=== PATIENT | female | born 1955 | race Two or more races ===

== ENCOUNTER → 2017-03-22 | Outpatient (CLI) | payer OTHER ==
--- NOTE | 2017-03-22 11:06 | RADRPT ---
PROCEDURE: XR right knee. CLINICAL INDICATION: Knee pain TECHNIQUE: AP weightbearing, PA weightbearing, lateral weightbearing and sunrise views are availab le for review. 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 The osseous structures are normal in mineralization, architecture and alignment. No fractures are i dentified. No osseous lesions are identified. There is mild osteoarthrosis involving the medial ti bial femoral compartment (joint space narrowing) and the patellofemoral compartment (minimal osteoph ytosis).. The soft tissues are unremarkable. 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 RPTAT: [facility] .Mac Hernandez MD, MD Date Time Electronically viewed and signed by .Mac Hernandez MD, on 03/22/2017 11:06 .B/
== END | disposition home or self-care (01) ==
LOC: HKI 09:19
PROVIDERS: ATTEND Orthopaedic Surgery
DX: M25.561 Pain in right knee (principal); Z79.82 Long term (current) use of aspirin; Z88.1 Allergy status to other antibiotic agents
CPT/HCPCS: G0463

== ENCOUNTER → 2017-04-28 | Outpatient (CLI) | payer OTHER | END | disposition home or self-care (01) | LOC: HKI 13:25 | PROVIDERS: ATTEND Orthopaedic Surgery | DX: M25.561 Pain in right knee (principal) | CPT/HCPCS: G0463 ==

== ENCOUNTER → 2017-06-20 | Outpatient (CLI) | payer OTHER ==
--- NOTE | 2017-06-21 05:33 | HKNOTE ---
DATE OF SERVICE: 06/20/2017 MAIN COMPLAINT: Right knee pain. HISTORY OF PRESENT ILLNESS: This is a 62-year-old female complaining of right knee pain. The pain is progressively getting worse. She has difficulty ambulating. She has difficulty navigating stairs. The pain is severe and both on the inside and outside of the knee. She is complaining of pain with locking and catching of the knee. She has attempted previous activity modification, pain medications, and physical therapy without any pain relief. She is taking [id number] anti- inflammatories. She denies any hip or back pain. PAST MEDICAL HISTORY: Hyperlipidemia. MEDICATIONS: 1. Simvastatin. 2. Aspirin. 3. Senna. 4. Mobic. 5. Ibuprofen. PAST SURGICAL HISTORY: None. SOCIAL HISTORY: Denies tobacco, alcohol, or drug use. FAMILY HISTORY: Noncontributory. ALLERGIES: MACROBID. SYSTEMS REVIEW: Negative, except per HPI. PHYSICAL EXAMINATION: GENERAL: The patient is in no acute distress. She is oriented x3. She is cooperative during examination. EXTREMITIES: Right knee, neutral alignment, 0-120 degrees range of motion. Tender over the medial lateral joint lines. Positive Ebonie's test. Negative Kari's. Negative anterior drawer. Negative posterior drawer. Stable to varus and valgus stress. Strength 5/5 of quadriceps, tibialis anterior, gastrosoleus, and hamstrings. Palpable dorsalis pedis and posterior tibialis pulse. IMAGING PROCEDURE: MRI right knee: MRI of the right knee demonstrates a tear of the posterior horn of the medial meniscus. There is also a radial tear of the anterior horn of the lateral meniscus. There is a parameniscal cyst adjacent to the anterior horn of the lateral meniscus. No other abnormalities are seen. IMPRESSION: This is a 62-year-old female with a right knee posterior horn medial meniscus tear, anterior horn, lateral meniscus tear who has failed nonoperative management. PLAN: We will request authorization for right knee arthroscopy. She will follow up in 6 weeks. She can continue to take ibuprofen as needed. Dictated By: Hair Bradshaw MD /renee/concepcion /Document#: [id number]
== END | disposition home or self-care (01) ==
LOC: HKI 14:04
PROVIDERS: ATTEND Orthopaedic Surgery Adult Reconstructive Orthopaedic Surgery
DX: M25.561 Pain in right knee (principal); S83.241A Other tear of medial meniscus, current injury, right knee, initial encounter
CPT/HCPCS: G0463